=== PATIENT | female | born 1975 | race Caucasian/White ===

== ENCOUNTER 2024-11-03 20:41 | Inpatient (IN) ==
[2024-11-03] MEDS: SODIUM CHLORIDE 0.9% 500 ML IV STA (21:20)
[2024-11-03 21:26] LABS: Hematocrit (blood only) 29.5 % (37.0-47.0); Hemoglobin 7.9 g/dl (12.0-16.0); Immature Granulocytes # (auto) 0.05 K/uL (0.01-0.20); Immature Granulocytes % (auto) 0.4 %; Mean Corpuscular Hemoglobin 15.7 pg (25.0-34.0); Mean Corpuscular Volume 58.6 fL (80.0-100.0); RDW Standard Deviation 41.4 fL (36.4-46.3); Red Blood Count 5.03 M/uL (4.20-5.40); White Blood Count 11.93 K/ul (4.8-10.8)
[2024-11-03 21:35] LABS: POC Urine Bilirubin Negative (Negative); POC Urine Blood 50 (Negative); POC Urine Glucose Normal (Normal); POC Urine Ketones Negative (Negative); POC Urine Leukocytes 2+ (Negative); POC Urine Nitrite Negative (Negative); POC Urine Protein 1+ (Negative); POC Urine Urobilinogen Normal (Normal); POC Urine pH 5 (4.5-7.5)
[2024-11-03 21:43] LABS: Alanine Aminotransferase 9.0 U/L (7-52); Albumin Globulin Ratio 1.3 (0.9-2); Alkaline Phosphatase 72.0 U/L (34-104); Anion Gap 5.0 (3-11); Bilirubin,Total 0.4 mg/dl (0.2-1.0); Blood Urea Nitrogen 24.0 mg/dl (6-23); Calcium 9.1 mg/dl (8.6-10.3); Carbon Dioxide 25.0 mmol/L (21-32); Chloride 107.0 mmol/L (98-107); Creatinine Clr Calc Pharmacy 51.6 ml/min; Globulin 3.2 gm/dl (2.5-4.0); Glucose 100.0 mg/dl (70-99(Fasting)); Potassium 3.7 mmol/L (3.5-5.1); Sodium 137.0 mmol/L (136-145); Total Protein 7.5 gm/dl (6.0-8.3)
[2024-11-03 21:46] LABS: Appearance Urine Clear (Clear); Bacteria Urine Automated 1+ (None Seen); Cast Urine Automated 0-2 /lpf (0-2); Glucose Urine UA Negative (Negative); WBC Urine Automated 21-50 /hpf (0-5)
[2024-11-03 21:54] LABS: Platelet Count 437 K/uL (130-400)
--- NOTE | 2024-11-03 21:57 | Emergency Department Note ---
Impression & Plan Calculus of left ureter, Hydronephrosis, UTI (urinary tract infection) ED Provider Note CHIEF COMPLAINT: Obstructing stone HISTORY OF PRESENTING ILLNESS: The patient is a pleasant 48-year-old female who arrives to the emergency department for evaluation of left flank pain. The patient reports she has been having pain since last Saturday. She reports that she was evaluated today and had CT imaging performed of the abdomen and pelvis which diagnosed a 9.5x 5.83 mm calculus in the distal left ureter with left hydronephrosis.the patient states she was contacted by her provider and informed to come to the emergency department for fear that she is unable to pass the stone, as she has been symptomatic for over a week now. The patient denies fever, dysuria, or vomiting. She does report some episodes of nausea, and significant pain. She reports no previous history of kidney stones. She is well-appearing otherwise, with stable vital signs. REVIEW OF SYSTEMS: See HPI for pertinent positives and pertinent negatives. ALLERGIES: See below MEDICATIONS: See below PAST MEDICAL HISTORY: See below PHYSICAL EXAM: VITALS: Vitals are noted on the nurse's note and reviewed by myself. Vital signs stable. GENERAL: 48-year-old female, in no acute distress, nondiaphoretic, well- developed well-nourished. SKIN: The skin was without rashes, erythema, edema, or bruising. HEAD: Normocephalic atraumatic. HEART: Regular rate and rhythm without murmurs gallops or rubs. LUNGS: Clear to auscultation bilaterally without wheezes, rales or rhonchi. No retractions or accessory muscle use. ABDOMEN: Positive bowel sounds x 4. Soft, slight tenderness to palpation left lower quadrant, no rebound tenderness or guarding. No CVA TTP. MUSCULOSKELETAL: No muscle atrophy, erythema, or edema noted. Normal gait. Strength 5/5 throughout. NEURO: Patient was alert and oriented to person place and time. No focal neurological deficits. DIFFERENTIAL DIAGNOSIS: Appendicitis, ovarian cyst, ovarian torsion, ectopic , TOA, PID, infections, diverticulitis, UTI, obstruction, mesenteric ischemia, aortic pathology, inflammatory bowel disease, renal colic, PUD, pancreatitis, biliary pathology, hernia, volvulus, constipation, as well as other pathologies. ED COURSE AND MEDICAL DECISION MAKING: HISTORY FROM INDEPENDENT HISTORIAN: at bedside serving as secondary historian. MEDICATIONS GIVEN: 1 L NSS bolus, 4 mg IV Zofran, 15 mg IV Toradol, 2 g IV Rocephin INTERPRETATION OF LABS: I interpreted the labs with full lab results as below in the lab section of this note. Pertinent lab results discussed in the MDM section below. INTERPRETATION OF IMAGING: Imaging studies were interpreted by myself and read by radiology as per the imaging section of this note. EXTERNAL RECORDS REVIEWED: [facility] imaging was obtained, showing the distal ureteral stone on the left, with hydronephrosis. ESCALATION OF CARE CONSIDERED: Admission considered, as the patient has been attempting to pass the stone since last Saturday, without success. CONSULTATIONS: Dougie Moody PA-C from urology consulted, who recommended admitting to medicine and urology consult. MDM SUMMARY: The patient is a pleasant, 48-year-old female who arrives to the emergency department for evaluation of the above-stated complaint. Patient arrived during time of high acuity, and high-volume. Initial workup was obtained in triage including a saline lock, CBC, CMP, lipase, urinalysis. CBC shows slight leukocytosis, with chronic anemia. CMP shows no concerning findings, no GENI. Urinalysis is positive for 2+ leukocyte esterase, 21-50 WBCs, and 1+ bacteria. Consultation obtained by urology, who recommended admitting to medicine. IV antibiotics were administered, as well as IV fluids, and pain control. Patient will be admitted to the [facility] hospitalist group, Dr. Bender. Please refer to his documentation, as well as urology's documentation for further patient workup and care. DIAGNOSIS: Left ureteral calculus, hydronephrosis, UTI The chart was completed utilizing [employer] Speech voice recognition software. Grammatical errors, random word insertions, pronoun errors, and incomplete sentences are an occasional consequence of this system due to software limitations, ambient noise, and hardware issues. Any formal questions or concerns about the content, text, or information contained within the body of this dictation should be directly addressed to the provider for clarification. Past Med/Surg History Problem List (Updated 11/03/24 @ 22:57 by JESSICA Omalley) UTI (urinary tract infection) (Acute) Hydronephrosis (Acute) Calculus of left ureter (Acute) Nephrolithiasis Social History Smoking Status: Never smoker Preferred Language: Uzbek Feels Safe at Home: Yes Allergies Allergies Allergy/AdvReac Type Severity Reaction Status Date / Time No Known Allergies Allergy Unverified 11/03/24 22:46 Home Meds Home Medications Medication Instructions Recorded Confirmed No Known Home Medications 11/03/24 11/03/24 Results & Data (ED) Vital Signs Vital Signs - 24 hr 11/03/24 20:43 11/03/24 21:23 Temperature 37 C Temperature Source Temporal Artery Scan Pulse Rate 99 H Pulse Rate [Apical] 81 Pulse Rhythm Regular Pulse Strength Normal Respiratory Rate 18 18 Respiratory Effort / Characteristics Non-Labored Spontaneous Non-Labored Spontaneous Respiratory Depth Normal Normal Respiratory Pattern Regular Regular Blood Pressure 127/79 Blood Pressure [Left Arm] 130/70 Blood Pressure Mean 95 Blood Pressure Mean [Left Arm] 90 Blood Pressure Position Sitting Pulse Oximetry 100 99 Oxygen Delivery Method Room Air Room Air Sepsis Recent Fever Within 48 Hours No Sepsis New/Unexplained Change in Mental Status N/A Sepsis Action Taken by Nursing No Action Required Home Medications Current Medication List: was personally reviewed by me Laboratory Data Attestation: I reviewed the patient's lab results. 11/03/24 21:09 11/03/24 21:09 Lab Results 11/03/24 11/03/24 11/03/24 Range/Units 21:09 21: 21:30 WBC 11.93 H (4.8-10.8) K/ul RBC 5.03 (4.20-5.40) M/uL Hgb 7.9 L (12.0-16.0) g/dl Hct 29.5 L (37.0-47.0) % MCV 58.6 L (80.0-100.0) fL MCH 15.7 L (25.0-34.0) pg MCHC 26.8 L (32.0-36.0) g/dL RDW Std Deviation 41.4 (36.4-46.3) fL RDW Coeff of Windy 21.0 H (11.5-14.5) % Plt Count 437 H (130-400) K/uL MPV 9.3 L (9.4-12.4) fL Immature Gran % (Auto) 0.4 % Neut % (Auto) 67.4 % Lymph % (Auto) 22.8 % [place] % (Auto) 6.5 % Eos % (Auto) 2.6 % Baso % (Auto) 0.3 % Neut # (Auto) 8.04 H (1.40-6.50) K/uL Lymph # (Auto) 2.72 (1.20-3.40) K/uL [place] # (Auto) 0.78 H (0.11-0.59) K/uL Eos # (Auto) 0.31 (0.00-0.50) K/uL Baso # (Auto) 0.03 (0.00-0.20) K/uL Immature Gran # (Auto) 0.05 (0.01-0.20) K/uL Sodium 137 (136-145) mmol/L Potassium 3.7 (3.5-5.1) mmol/L Chloride 107 (98-107) mmol/L Carbon Dioxide 25 (21-32) mmol/L Anion Gap 5 (3-11) BUN 24 H (6-23) mg/dl Creatinine 1.15 (0.6-1.2) mg/dl Est Cr Clr Drug Dosing 51.6 ml/min eGFR 59.13 BUN/Creatinine Ratio 20.9 H (10-20) Glucose 100 H (70-99(Fasting)) mg/dl Calcium 9.1 (8.6-10.3) mg/dl Total Bilirubin 0.4 (0.2-1.0) mg/dl AST 12 L (13-39) U/L ALT 9 (7-52) U/L Alkaline Phosphatase 72 (34-104) U/L Total Protein 7.5 (6.0-8.3) gm/dl Albumin 4.3 (3.4-5.0) gm/dl Globulin 3.2 (2.5-4.0) gm/dl Albumin/Globulin Ratio 1.3 (0.9-2) Urine Color Yellow Urine Appearance Clear (Clear) Urine pH 5.0 (4.5-7.5) POC Urine pH 5 (4.5-7.5) Ur Specific [place] 1.026 (1.000-1.030) Urine Protein Trace H (Negative) POC Urine Protein 1+ H (Negative) Urine Glucose (UA) Negative (Negative) POC Ur Glucose (UA) Normal (Normal) Urine Ketones Trace H (Negative) POC Urine Ketones Negative (Negative) Urine Blood 1+ H (Negative) POC Urine Blood 50 H (Negative) Urine Nitrite Negative (Negative) POC Urine Nitrite Negative (Negative) Urine Bilirubin Negative (Negative) POC Urine Bilirubin Negative (Negative) Urine Urobilinogen Negative (Negative) POC Urine Urobilinogen Normal (Normal) Ur Leukocyte Esterase 2+ H (Negative) POC U Leukocyte Esteras 2+ H (Negative) Urine WBC (Auto) 21-50 H (0-5) /hpf Urine RBC (Auto) 6-10 H (0-2) /hpf U Hyaline Cast (Auto) 0-2 (0-2) /lpf U Epithel Cells (Auto) 6-10 H (0-2) /hpf Urine Bacteria (Auto) 1+ H (None Seen) POC Ur Test NEG (NEG) Urine Comment Administered Medications Sodium Chloride (Nss) 1,000 mls @ 999 mls/hr IV .Q1H1M ONE Stop: 11/03/24 22:59 Last Admin: 11/03/24 22:06 Dose: 999 mls/hr Documented By: KELLEN Discontinued Medications Sodium Chloride (Nss) 500 mls @ 999 mls/hr IV .Q31M STA Stop: 11/03/24 21:17 Last Infusion: 11/03/24 22:00 Dose: Infused Documented By: Admin: 11/03/24 21:20 Dose: 999 mls/hr Documented By: KELLEN Ceftriaxone Sodium (Rocephin) 2,000 mg in 50 mls @ 100 mls/hr IV NOW STA Stop: 11/03/24 22:29 Last Admin: 11/03/24 22:06 Dose: 100 mls/hr Documented By: KELLEN Ketorolac Tromethamine (Ketorolac Tromethamine 15 Mg/Ml Vial) 15 mg IV NOW ONE Stop: 11/03/24 22:00 Last Admin: 11/03/24 22:02 Dose: 15 mg Documented By: KELLEN Imaging Data Attestation: I personally reviewed and interpreted this imaging study as follows: Discharge Plan Visit Data Chief Complaint: Kidney Stone Stated Complaint: KIDNEY STONE ED Provider: Nestor Umana ED Midlevel Provider: Clarisa Ha Discharge Problem: Calculus of left ureter, Hydronephrosis, UTI (urinary tract infection) Patient Disposition: Admitted As Inpatient Condition: Good Forms Stand Alone Forms: My [facility] Prescriptions Prescriptions: No Action No Known Home Medications Referrals Referrals: Rojas Hernandez M.D. [Primary Care Provider] -
[2024-11-03] MEDS: KETOROLAC TROMETHAMINE 15 MG/ML VIAL IV ONE (22:02)
[2024-11-03] MEDS: cefTRIAXone SODIUM 2,000 MG/50 ML BAG IV STA (22:06)
[2024-11-03] MEDS: SODIUM CHLORIDE 0.9% 1,000 ML IV ONE (22:06)
--- NOTE | 2024-11-03 22:25 | Urology Consultation ---
Date of Consultation November 03, 2024 Assessment & Plan (1) Nephrolithiasis: The patient is being admitted on hospital service. From a urologic perspective we recommend the following: Provide analgesics Provide antiemetics Hydrate with IV fluids Follow serial labs Patient has an abnormal urinalysis and Rocephin has been initiated. Antibiotic should continue but can be tailored based on pending culture results Consideration can be given to utilizing Flomax for expulsive therapy, however it is unlikely the patient will pass the stone of the size. At the present time the patient is nontoxic-appearingthat she is normotensive no tachycardia or fever. She does not have acute kidney injury. Therefore not feeling emergent urologic procedure is required at this time Would recommend making the patient n.p.o. after midnight and [facility] and the determination was made if patient will undergo cystoscopic intervention Additional recommendations be forthcoming based on her clinical course as unfolds History of Present Illness Reason for Consultation: Nephrolithiasis History of Present Illness This is a 48-year-old female who presented to the emergency department [facility] secondary to left-sided flank pain. Patient says that she has been struggling with this problem for approximately 9 days. She says when the pain initially began it was in her left flank with some radiation to the front of her abdomen. She did have some associated nausea and vomiting but this has abated. She does not report any other radiation or modifying factors to her pain. She did report 1 low-grade temperature earlier today which is approximate 99.5. She denies any dysuria or hematuria and has no prior history of kidney stones. Patient says that she originally went to a facility in [place], [place] where she was discharged but then she went to an urgent care facility through [facility] where she obtained a CAT scan which will be listed below. The patient did have a CT scan at [facility] facility in [place], [place]. I do not have the images available but the patient was able to show me the report on her portal and she was noted to have a left-sided kidney stone measuring approximately 9.5 mm. Because of the CT scan results the patient went to the emergency department [facility] where urology was asked to evaluate her. Since arrival to the emergency department at [facility] she has had labs including CBC were white blood cell count had a slight elevation 11 .9. Her hemoglobin and hematocrit were 7.9 and 29.5. Platelet count is 4 and 37,000. Chemistry profile showed sodium and potassium were normal. The patient's BUN had a slight elevation at 24 but her creatinine was normal at 1.15. Urinalysis did show 1+ blood. The specimen was negative for nitrites but had 2+ leukocyte Estrace and 21-50 white blood cells per high-power field and 1+ bacteria. She did have a test that was negative. At the time of my interview she was resting comfortably bed and she was in no distress. Allergies Allergy/AdvReac Type Severity Reaction Status Date / Time No Known Allergies Allergy Unverified 12/23/10 12:44 Home Medications Medication Instructions Recorded Confirmed Type None (Patient States No Home Meds) ##0 12/23/10 History Patient History Social History Smoking Status: Never smoker Preferred Language: Maori Feels Safe at Home: Yes Review of Systems Review of Systems: All systems reviewed & are unremarkable except as noted in HPI & below Physical Exam Constitutional: WD/WN, vitals as above Eyes: Wears glasses ENMT: Ears: no hearing impairment Mouth: no oropharynx abnormality Neck: trachea midline Respiratory: normal respiratory effort; no respiratory distress and no labored breathing Cardiovascular: Rate/Rhythm: regular rate and regular rhythm Gastrointestinal (Abdomen): At at the time of my exam the patient's abdomen was noted to be soft without distention or rigidity. There is no pain with palpation Musculoskeletal: No calf tenderness Skin: no rashes Neurologic: moves all extremities Psychiatric: A+Ox3, euthymic affect Genitourinary: Minimal CVA tenderness with percussion on the left. No CVA tenderness with percussion on the right Results & Data Vital Signs (Past 12 Hours) Vital Signs Temp Pulse Pulse Resp BP BP Pulse Ox 11/03/24 21:23 81 18 130/70 99 11/03/24 20:43 37 C 99 H 18 127/79 100 O2 Del Method 11/03/24 21:23 Room Air 11/03/24 20:43 Room Air PG Care Time/CCT Total # of Minutes Spent Total Time Spent with Patient: Total time spent is greater than 50% in coordination of care (as documented) at patient's floor/unit and/or counseling patient: Coding Level of Care Code 36796 IN/OBS CONSULT LVL 5,80M Diagnoses Nephrolithiasis N20.0
[2024-11-03 22:57] LABS: Anisocytosis Present; Hypersegmented Neutrophils 2+; Microcytosis Present; Polychromasia 1+; Tear Drop Cells 1+
--- NOTE | 2024-11-03 23:56 | History & Physical Report ---
Date of Service November 03, 2024 Assessment & Plan (1) UTI (urinary tract infection): Plan: Assessment and plan below following discussion of case with ED provider and reviewing patient history/pertinent normal/abnormal diagnostic test results. Complicated UTI, possible pyelonephritis Secondary to obstructing kidney stone No sepsis for now Acute on chronic anemia Patient admits to heavy menses for some time now. microscopic hematuria from kidney stone contributory Admit to MedSurg Urine CS, ceftriaxone Urology consult re: obstructing kidney stone Strain urine N.p.o. in anticipation of procedure in a.m. Anemia workup, transfuse PRBC if hemoglobin less than 7 and or for symptomatic anemia Outpatient gynecology evaluation for heavy menses DVT prophylaxis. SCDs Re: Anemia Full code Text document was generated using [employer] voice recognition software. It may contain grammatical or spelling errors. Kindly contact undersigned for clarification of any documentation item in question. History of Present Illness Chief Complaint: Kidney stone Primary Care Provider: Rojas Hernandez History obtained from patient, family, and records. Medical history significant for chronic anemia (baseline hemoglobin of 8), recent diagnosis of kidney stone. 9 days ago, patient noted left flank pain symptoms going to her belly with nausea/emesis. No gross hematuria. No dysuria. No prior episodes. Patient suspected kidney stone. Patient evaluated at [facility] ER last week. UA showed possible UTI, no imaging done. No medications given on discharge. Patient called PCP's office due to worsening symptoms. Patient directed to urgent care center today. Urgent care center recommended outpatient CT abdomen pelvis imaging. Outpatient CT abdomen pelvis done at [facility] showed left-sided kidney stone measuring 9.5 mm. Patient directed to ER for evaluation. IV ceftriaxone administered at the ER. Medical History as above Surgical History : None Family History : Unknown as patient was adopted Personal/Social history : Non-smoker, no EtOH intake, moy by profession/homemaker Allergies Allergy/AdvReac Type Severity Reaction Status Date / Time No Known Allergies Allergy Unverified 11/03/24 22:46 Home Medications Medication Instructions Recorded Confirmed Type No Known Home Medications 11/03/24 11/03/24 History Past Med/Surg History Problem List (Updated 11/04/24 @ 01:53 by Background Daemon) UTI (urinary tract infection) (Acute) Hydronephrosis (Acute) Calculus of left ureter (Acute) Nephrolithiasis Social History Smoking Status: Never smoker Hx Alcohol Use: No Hx Substance Use: No Preferred Language: Kiswahili Communication Ability: Effective Coat Joiner Lockstitch Required: No Beliefs That Will Affect Care: None Current Living Situation: Spouse Other Information That Helps Us Care for You: No Feels Safe at Home: Yes Safety Concerns: Feels Safe At This Time Assistive Devices: None Review of Systems Review of Systems: As per HPI, all other systems reviewed and negative Physical Exam Physical Exam: GENERAL: Comfortable, pleasant, no respiratory distress SKIN: Pallor, warm HEENT: Bespectacled, pale palpebral conjunctivae, no ptosis, dry buccal mucosa NECK : Supple, no tenderness CHEST : CTA, no tenderness HEART : RRR, no obvious murmurs ABDOMEN: Some distention, left flank tenderness EXTREMITIES : No LE swelling/tenderness, palpable pulses, no other conspicuous deformities noted NEUROLOGIC : Coherent, no facial asymmetry, no other gross focality Results & Data Results & Data Vital Signs (Past 12 Hours) Vital Signs Temp Pulse Pulse Resp BP BP Pulse Ox 11/03/24 23:33 85 123/81 99 11/03/24 21:23 81 18 130/70 99 11/03/24 20:43 37 C 99 H 18 127/79 100 O2 Del Method 11/03/24 23:33 Room Air 11/03/24 21:23 Room Air 11/03/24 20:43 Room Air Laboratory Results Laboratory Results WBC 11.93 K/ul (4.8-10.8) H 11/03/24 21:09 RBC 5.03 M/uL (4.20-5.40) 11/03/24 21:09 Hgb 7.9 g/dl (12.0-16.0) L 11/03/24 21:09 Hct 29.5 % (37.0-47.0) L 11/03/24 21:09 MCV 58.6 fL (80.0-100.0) L 11/03/24 21:09 MCH 15.7 pg (25.0-34.0) L 11/03/24 21:09 MCHC 26.8 g/dL (32.0-36.0) L 11/03/24 21:09 RDW Std Deviation 41.4 fL (36.4-46.3) 11/03/24 21:09 RDW Coeff of Windy 21.0 % (11.5-14.5) H 11/03/24 21:09 Plt Count 437 K/uL (130-400) H 11/03/24 21:09 MPV 9.3 fL (9.4-12.4) L 11/03/24 21:09 Immature Gran % (Auto) 0.4 % 11/03/24 21:09 Neut % (Auto) 67.4 % 11/03/24 21:09 Lymph % (Auto) 22.8 % 11/03/24 21:09 [place] % (Auto) 6.5 % 11/03/24 21:09 Eos % (Auto) 2.6 % 11/03/24 21:09 Baso % (Auto) 0.3 % 11/03/24 21:09 Neut # (Auto) 8.04 K/uL (1.40-6.50) H 11/03/24 21:09 Lymph # (Auto) 2.72 K/uL (1.20-3.40) 11/03/24 21:09 [place] # (Auto) 0.78 K/uL (0.11-0.59) H 11/03/24 21:09 Eos # (Auto) 0.31 K/uL (0.00-0.50) 11/03/24 21:09 Baso # (Auto) 0.03 K/uL (0.00-0.20) 11/03/24 21:09 Immature Gran # (Auto) 0.05 K/uL (0.01-0.20) 11/03/24 21:09 Hypersegmented Neuts 2+ 11/03/24 21:09 Polychromasia 1+ 11/03/24 21:09 Anisocytosis Present 11/03/24 21:09 Microcytosis Present 11/03/24 21:09 Tear Drop Cells 1+ 11/03/24 21:09 Sodium 137 mmol/L (136-145) 11/03/24 21:09 Potassium 3.7 mmol/L (3.5-5.1) 11/03/24 21:09 Chloride 107 mmol/L (98-107) 11/03/24 21:09 Carbon Dioxide 25 mmol/L (21-32) 11/03/24 21:09 Anion Gap 5 (3-11) 11/03/24 21: BUN 24 mg/dl (6-23) H 11/03/24 21: Creatinine 1.15 mg/dl (0.6-1.2) 11/03/24 21: Est Cr Clr Drug Dosing 51.6 ml/min 11/03/24 21: eGFR 59.13 11/03/24 21: BUN/Creatinine Ratio 20.9 (10-20) H 11/03/24 21: Glucose 100 mg/dl (70-99(Fasting)) H 11/03/24 21: Calcium 9.1 mg/dl (8.6-10.3) 11/03/24 21: Total Bilirubin 0.4 mg/dl (0.2-1.0) 11/03/24 21: AST 12 U/L (13-39) L 11/03/24 21: ALT 9 U/L (7-52) 11/03/24 21:09 Alkaline Phosphatase 72 U/L (34-104) 11/03/24 21: Total Protein 7.5 gm/dl (6.0-8.3) 11/03/24 21: Albumin 4.3 gm/dl (3.4-5.0) 11/03/24 21: Globulin 3.2 gm/dl (2.5-4.0) 11/03/24 21: Albumin/Globulin Ratio 1.3 (0.9-2) 11/03/24 21: Urine Color Yellow 11/03/24: Urine Appearance Clear (Clear) 11/03/24: Urine pH 5.0 (4.5-7.5) 11/03/24: POC Urine pH 5 (4.5-7.5) 11/03/24: Ur Specific [place] 1.026 (1.000-1.030) 11/03/24: Urine Protein Trace (Negative) H 11/03/24: POC Urine Protein 1+ (Negative) H 11/03/24: Urine Glucose (UA) Negative (Negative) 11/03/24 POC Ur Glucose (UA) Normal (Normal) 07/15/25 21:30 Urine Ketones Trace (Negative) H 11/03/24 21:25 POC Urine Ketones Negative (Negative) 11/03/24 21: Urine Blood 1+ (Negative) H 11/03/24 21: POC Urine Blood 50 (Negative) H 11/03/24 21: Urine Nitrite Negative (Negative) 11/03/24 21: POC Urine Nitrite Negative (Negative) 11/03/24: Urine Bilirubin Negative (Negative) 11/03/24 21: POC Urine Bilirubin Negative (Negative) 11/03/24 21: Urine Urobilinogen Negative (Negative) 11/03/24 21: POC Urine Urobilinogen Normal (Normal) 11/03/24 21: Ur Leukocyte Esterase 2+ (Negative) H 11/03/24: POC U Leukocyte Esteras 2+ (Negative) H 11/03/24 21: Urine WBC (Auto) 21-50 /hpf (0-5) H 11/03/24 21: Urine RBC (Auto) 6-10 /hpf (0-2) H 11/03/24 21: U Hyaline Cast (Auto) 0-2 /lpf (0-2) 11/03/24 21: U Epithel Cells (Auto) 6-10 /hpf (0-2) H 11/03/24 21: Urine Bacteria (Auto) 1+ (None Seen) H 11/03/24 21: POC Ur Test NEG (NEG) 11/03/24: Urine Comment 11/03/24 21:25
[2024-11-04] MEDS ORDERED: PROMETHAZINE 6.25 MG/50.25 ML BAG IV PRN (00:09)
[2024-11-04] MEDS: MoRPHine SULFATE 4 MG/ML 1 ML CARP\\VIAL IV PRN (03:22)
[2024-11-04] MEDS: SODIUM CHLORIDE 0.9% 1,000 ML IV ONE (06:17)
[2024-11-04 07:22] LABS: Anion Gap 5.0 (3-11); Blood Urea Nitrogen 18.0 mg/dl (6-23); Calcium 7.8 mg/dl (8.6-10.3); Carbon Dioxide 23.0 mmol/L (21-32); Chloride 110.0 mmol/L (98-107); Creatinine Clr Calc Pharmacy 66.0 ml/min; Glucose 99.0 mg/dl (70-99(Fasting)); Iron 11.0 mcg/dl (35-150); Potassium 3.6 mmol/L (3.5-5.1); Sodium 138.0 mmol/L (136-145); Transferrin 352.0 mg/dl (200-360)
[2024-11-04 07:29] LABS: Hematocrit (blood only) 26.0 % (37.0-47.0); Hemoglobin 6.9 g/dl (12.0-16.0); Mean Corpuscular Hemoglobin 15.6 pg (25.0-34.0); Mean Corpuscular Volume 59.0 fL (80.0-100.0); Platelet Count 356 K/uL (130-400); RDW Standard Deviation 41.6 fL (36.4-46.3); Red Blood Count 4.41 M/uL (4.20-5.40); White Blood Count 9.72 K/ul (4.8-10.8)
[2024-11-04] MEDS ORDERED: SODIUM CHLORIDE 0.9% 100 ML IV PRN (07:38)
[2024-11-04 07:42] LABS: Anisocytosis Present; Ferritin 5.5 ng/ml (8-388); Hypochromasia Present; Immature Granulocytes # (auto) 0.03 K/uL (0.01-0.20); Immature Granulocytes % (auto) 0.3 %; Ovalocytes 1+; Polychromasia 1+; Reticulocytes # 0.060 10^6/uL (0.020-0.100); Rouleaux 1+; Target Cells 1+
[2024-11-04 07:48] LABS: Folate (Folic Acid),Ser orPlas 13.43 ng/ml (>5.38)
[2024-11-04 07:49] LABS: Vitamin B12 306.0 pg/ml (180-914)
--- NOTE | 2024-11-04 09:16 | Urology Progress Note ---
Date of Service November 04, 2024 Assessment & Plan (1) Calculus of left ureter: Plan: Ct scan from [facility] was imported and reviewed with Dr Bedolla. She has a left ureteral stone with some mild hydronephrosis. afebrile. VSS. hgb 6.9 today. Cr 0.90 Discussed options with her including cysto/URS and left stent placement vs observation. She prefers to have this managed surgically as it is unlikely she will pass this stone. NPO. Plan for cysto/URS and left ureteral stent placement with Dr Bedolla today. She understands that she will need a second procedure for stone treatment. Continue antibiotics/pain control. (2) Hydronephrosis: (3) UTI (urinary tract infection): Admission and Anticipated Discharge Date Admission Date: November 03, 2024 Supervising Physician Co-Signing Physician Notes Discussed patient with PAOLA. Agree with plan. Plan for cystoscopy with left stent due to pain and potential infection. C onsent obtained, patient marked. Subjective 48 year old patient admitted with left 9.5mm kidney stone per the report, in the left ureter. Still continues to have left lower abdominal and left back pain. She is npo. CT scan was imported into our [employer] system. Physical Exam Constitutional: well developed and well nourished; no acute distress and not ill appearing Respiratory: normal respiratory effort; no respiratory distress and no labored breathing Gastrointestinal (Abdomen): Percussion/Palpation: + abdomen tender and abdomen soft Psychiatric: A+Ox3, euthymic affect Genitourinary: + CVA tenderness Results & Data Vital Signs (Past 12 Hours) Vital Signs Temp Pulse Pulse Resp BP BP Pulse Ox 11/04/24 07:32 36.8 C 73 18 102/63 98 11/04/24 02:33 36.8 C 85 18 133/78 100 11/04/24 01:59 36.8 C 85 18 133/78 85 L 11/04/24 01:30 85 16 128/78 99 11/04/24 00:30 89 123/73 98 11/04/24 00:00 86 130/80 100 11/03/24 23:33 85 123/81 99 11/03/24 21:23 81 18 130/70 99 O2 Del Method 11/04/24 07:32 Room Air 11/04/24 02:33 Room Air 11/04/24 01:59 Room Air 07/16/25 01:30 Room Air 11/04/24 00:30 Room Air 11/04/24 00:00 Room Air 11/03/24 23:33 Room Air 11/03/24 21:23 Room Air PG Care Time/CCT Total # of Minutes Spent Total Time Spent with Patient: Total time spent is greater than 50% in coordination of care (as documented) at patient's floor/unit and/or counseling patient: Coding Level of Care Code 22331 SUB INP/OBS CARE 2/35MIN Diagnoses Calculus of left ureter N20.1 Hydronephrosis N13.30 UTI (urinary tract infection) N39.0
--- NOTE | 2024-11-04 09:26 | Hospitalist Progress Note ---
Date of Service November 04, 2024 Assessment & Plan (1) UTI (urinary tract infection): Plan: Complicated UTI, possible pyelonephritis Secondary to obstructing kidney stone No sepsis for now Urine CS, ceftriaxone Urology consulted re: obstructing kidney stone Strain urine N.p.o. in anticipation of procedure later today Acute on chronic anemia Patient admits to heavy menses for some time now. microscopic hematuria from kidney stone contributory Anemia workup, transfuse PRBC if hemoglobin less than 7 and or for symptomatic anemia 1 unit of pRBC ordered for Hgb 6.9 this AM Outpatient gynecology evaluation for heavy menses PCP follow up DVT prophylaxis. SCDs Re: Anemia Full code Admission and Anticipated Discharge Date Admission Date: November 03, 2024 Subjective Pt seen in follow up of obstructive uropathy, urology consulted Pt also anemic (seems to have chronic anemia) but now w/ worsening H&H, unit of pRBC ordered Currently pt is lying in bed, continues to have left sided flank pain, uncomfortable, plan for OR w/ urology later today No fever, chills, chest pain or shortness of breath, no vomiting, diarrhea Says she will need new PCP Review of Systems Review of Systems: All systems reviewed & are unremarkable except as noted in Subjective Physical Exam Physical Exam: GENERAL: WD/WN F in NAD but somewhat uncomfortable d/t pain HEENT: Bespectacled, pale palpebral conjunctivae, no ptosis NECK : Supple, no tenderness CHEST : CTA, no tenderness HEART : RRR, no obvious murmurs ABDOMEN: Some distention, + left flank tenderness EXTREMITIES : No LE swelling/tenderness, palpable pulses, no other conspicuous deformities noted NEUROLOGIC : awake, alert, answers appropriately, no facial asymmetry, speech fluent, moves extremities SKIN: warm, dry Results & Data Results & Data Vital Signs (Past 12 Hours) Vital Signs Temp Pulse Pulse Resp BP BP Pulse Ox 11/04/24 07:32 36.8 C 73 18 102/63 98 11/04/24 02:33 36.8 C 85 18 133/78 100 11/04/24 01:59 36.8 C 85 18 133/78 85 L 11/04/24 01:30 85 16 128/78 99 11/04/24 00:30 89 123/73 98 11/04/24 00:00 86 130/80 100 11/03/24 23:33 85 123/81 99 O2 Del Method 11/04/24 07:32 Room Air 11/04/24 02:33 Room Air 11/04/24 01:59 Room Air 11/04/24 01:30 Room Air 11/04/24 00:30 Room Air 11/04/24 00:00 Room Air 11/03/24 23:33 Room Air Laboratory Results 11/04/24 11/04/24 11/03/24 Range/Units 08:01 06:22 21:30 WBC 9.72 (4.8-10.8) K/ul RBC 4.41 (4.20-5.40) M/uL Hgb 6.9 L* (12.0-16.0) g/dl Hct 26.0 L (37.0-47.0) % MCV 59.0 L (80.0-100.0) fL MCH 15.6 L (25.0-34.0) pg MCHC 26.5 L (32.0-36.0) g/dL RDW Std Deviation 41.6 (36.4-46.3) fL RDW Coeff of Windy 20.4 H (11.5-14.5) % Plt Count 356 (130-400) K/uL MPV 9.2 L (9.4-12.4) fL Immature Gran % (Auto) 0.3 % Neut % (Auto) 62.1 % Lymph % (Auto) 24.7 % [place] % (Auto) 8.6 % Eos % (Auto) 4.0 % Baso % (Auto) 0.3 % Reticulocyte % (Auto) 1.39 (0.50-2.00) % Neut # (Auto) 6.03 (1.40-6.50) K/uL Lymph # (Auto) 2.40 (1.20-3.40) K/uL [place] # (Auto) 0.84 H (0.11-0.59) K/uL Eos # (Auto) 0.39 (0.00-0.50) K/uL Baso # (Auto) 0.03 (0.00-0.20) K/uL Reticulocyte # 0.060 (0.020-0.100) 10^6/uL Immature Gran # (Auto) 0.03 (0.01-0.20) K/uL Hypersegmented Neuts Polychromasia 1+ Hypochromasia Present Anisocytosis Present Microcytosis Target Cells 1+ Tear Drop Cells Ovalocytes 1+ Rouleaux 1+ Sodium 138 (136-145) mmol/L Potassium 3.6 (3.5-5.1) mmol/L Chloride 110 H (98-107) mmol/L Carbon Dioxide 23 (21-32) mmol/L Anion Gap 5 (3-11) BUN 18 (6-23) mg/dl Creatinine 0.90 (0.6-1.2) mg/dl Est Cr Clr Drug Dosing 66.0 ml/min eGFR 79.35 BUN/Creatinine Ratio 20.0 (10-20) Glucose 99 (70-99(Fasting)) mg/dl Calcium 7.8 L (8.6-10.3) mg/dl Iron 11 L (35-150) mcg/dl Transferrin 352 (200-360) mg/dl Ferritin 5.5 L (8-388) ng/ml Total Bilirubin (0.2-1.0) mg/dl AST (13-39) U/L ALT (7-52) U/L Alkaline Phosphatase (34-104) U/L Total Protein (6.0-8.3) gm/dl Albumin (3.4-5.0) gm/dl Globulin (2.5-4.0) gm/dl Albumin/Globulin Ratio (0.9-2) Vitamin B12 306 (180-914) pg/ml Folate 13.43 (>5.38) ng/ml Urine Color Urine Appearance (Clear) Urine pH (4.5-7.5) POC Urine pH 5 (4.5-7.5) Ur Specific [place] (1.000-1.030) Urine Protein (Negative) POC Urine Protein 1+ H (Negative) Urine Glucose (UA) (Negative) POC Ur Glucose (UA) Normal (Normal) Urine Ketones (Negative) POC Urine Ketones Negative (Negative) Urine Blood (Negative) POC Urine Blood 50 H (Negative) Urine Nitrite (Negative) POC Urine Nitrite Negative (Negative) Urine Bilirubin (Negative) POC Urine Bilirubin Negative (Negative) Urine Urobilinogen (Negative) POC Urine Urobilinogen Normal (Normal) Ur Leukocyte Esterase (Negative) POC U Leukocyte Esteras 2+ H (Negative) Urine WBC (Auto) (0-5) /hpf Urine RBC (Auto) (0-2) /hpf U Hyaline Cast (Auto) (0-2) /lpf U Epithel Cells (Auto) (0-2) /hpf Urine Bacteria (Auto) (None Seen) POC Ur Test NEG (NEG) Urine Comment Blood Type O Positive Blood Type Recheck O Positive Antibody Screen NEGATIVE Crossmatch See Detail 11/03/24 11/03/24 Range/Units 21:25 21:09 WBC 11.93 H (4.8-10.8) K/ul RBC 5.03 (4.20-5.40) M/uL Hgb 7.9 L (12.0-16.0) g/dl Hct 29.5 L (37.0-47.0) % MCV 58.6 L (80.0-100.0) fL MCH 15.7 L (25.0-34.0) pg MCHC 26.8 L (32.0-36.0) g/dL RDW Std Deviation 41.4 (36.4-46.3) fL RDW Coeff of Windy 21.0 H (11.5-14.5) % Plt Count 437 H (130-400) K/uL MPV 9.3 L (9.4-12.4) fL Immature Gran % (Auto) 0.4 % Neut % (Auto) 67.4 % Lymph % (Auto) 22.8 % [place] % (Auto) 6.5 % Eos % (Auto) 2.6 % Baso % (Auto) 0.3 % Reticulocyte % (Auto) (0.50-2.00) % Neut # (Auto) 8.04 H (1.40-6.50) K/uL Lymph # (Auto) 2.72 (1.20-3.40) K/uL [place] # (Auto) 0.78 H (0.11-0.59) K/uL Eos # (Auto) 0.31 (0.00-0.50) K/uL Baso # (Auto) 0.03 (0.00-0.20) K/uL Reticulocyte # (0.020-0.100) 10^6/uL Immature Gran # (Auto) 0.05 (0.01-0.20) K/uL Hypersegmented Neuts 2+ Polychromasia 1+ Hypochromasia Anisocytosis Present Microcytosis Present Target Cells Tear Drop Cells 1+ Ovalocytes Rouleaux Sodium 137 (136-145) mmol/L Potassium 3.7 (3.5-5.1) mmol/L Chloride 107 (98-107) mmol/L Carbon Dioxide 25 (21-32) mmol/L Anion Gap 5 (3-11) BUN 24 H (6-23) mg/dl Creatinine 1.15 (0.6-1.2) mg/dl Est Cr Clr Drug Dosing 51.6 ml/min eGFR 59.13 BUN/Creatinine Ratio 20.9 H (10-20) Glucose 100 H (70-99(Fasting)) mg/dl Calcium 9.1 (8.6-10.3) mg/dl Iron (35-150) mcg/dl Transferrin (200-360) mg/dl Ferritin (8-388) ng/ml Total Bilirubin 0.4 (0.2-1.0) mg/dl AST 12 L (13-39) U/L ALT 9 (7-52) U/L Alkaline Phosphatase 72 (34-104) U/L Total Protein 7.5 (6.0-8.3) gm/dl Albumin 4.3 (3.4-5.0) gm/dl Globulin 3.2 (2.5-4.0) gm/dl Albumin/Globulin Ratio 1.3 (0.9-2) Vitamin B12 (180-914) pg/ml Folate (>5.38) ng/ml Urine Color Yellow Urine Appearance Clear (Clear) Urine pH 5.0 (4.5-7.5) POC Urine pH (4.5-7.5) Ur Specific [place] 1.026 (1.000-1.030) Urine Protein Trace H (Negative) POC Urine Protein (Negative) Urine Glucose (UA) Negative (Negative) POC Ur Glucose (UA) (Normal) Urine Ketones Trace H (Negative) POC Urine Ketones (Negative) Urine Blood 1+ H (Negative) POC Urine Blood (Negative) Urine Nitrite Negative (Negative) POC Urine Nitrite (Negative) Urine Bilirubin Negative (Negative) POC Urine Bilirubin (Negative) Urine Urobilinogen Negative (Negative) POC Urine Urobilinogen (Normal) Ur Leukocyte Esterase 2+ H (Negative) POC U Leukocyte Esteras (Negative) Urine WBC (Auto) 21-50 H (0-5) /hpf Urine RBC (Auto) 6-10 H (0-2) /hpf U Hyaline Cast (Auto) 0-2 (0-2) /lpf U Epithel Cells (Auto) 6-10 H (0-2) /hpf Urine Bacteria (Auto) 1+ H (None Seen) POC Ur Test (NEG) Urine Comment Blood Type Blood Type Recheck Antibody Screen Crossmatch Medications Administered Current Inpatient Medications Ceftriaxone Sodium (Rocephin) 2,000 mg in 50 mls @ 100 mls/hr IV Q24H RAFAEL Stop: 11/11/24 22:29 Promethazine HCl (Phenergan) 6.25 mg in 50.25 mls @ 201 mls/hr IV Q6H PRN PRN Reason: Nausea And Vomiting Stop: 12/04/24 00:08 Sodium Chloride (Nss) 1,000 mls @ 100 mls/hr IV .Q10H ONE Stop: 11/04/24 14:11 Last Admin: 11/04/24 06:17 Dose: 100 mls/hr Sodium Chloride (Nss) 100 mls @ 15 mls/hr IV .Q6H40M PRN PRN Reason: For Transfusion Duration Stop: 11/04/24 15:38 Lorazepam (Lorazepam 0.5 Mg Tab) 0.5 mg PO TID PRN PRN Reason: Anxiety Stop: 12/04/24 00:08 Morphine Sulfate (Morphine Sulfate 4 Mg/Ml 1 Ml Carp\Vial) 4 mg IV Q4H PRN PRN Reason: Pain Stop: 11/18/24 00:08 Last Admin: 11/04/24 03:22 Dose: 4 mg Oxycodone HCl (Oxycodone Hcl Ir 5 Mg Tab (Immediate Release)) 5 mg PO Q4H PRN PRN Reason: Pain Stop: 11/18/24 00:08 Last Admin: 11/04/24 09:00 Dose: 5 mg
[2024-11-04] MEDS: KETOROLAC TROMETHAMINE 15 MG/ML VIAL IV ONE (11:20)
[2024-11-04] MEDS ORDERED: PROMETHAZINE HCL 6.25 MG in SODIUM CHLORIDE 0.9% 50 ML IV PRN (13:17)
[2024-11-04] MEDS ORDERED: ATROPINE SULFATE 0.1 MG/ML 10ML SYR IV PRN (13:17)
[2024-11-04] MEDS ORDERED: HYDROmorphone INJ 2 MG/ML SYR/VIAL IV PRN (13:17)
[2024-11-04] MEDS ORDERED: DROPERIDOL 5 MG/2 ML VIAL IV PRN (13:17)
--- NOTE | 2024-11-04 13:17 | Anesthesiology Consultation ---
Date of Service November 04, 2024 Assessment & Plan ASA ASA2 Proposed Anesthesia Anesthesia Type: MAC Risk / Benefits Reviewed With: PT / POA / Parent / Guardian, Accepts Plan and Informed Consent Obtained History Surgery Operation Date: 11/04/24 07:00 Proposed Procedures p Cystoscopy Left Ureteroscopy and Stent Placement - Sukhi Bedolla MD Height/Weight Height: 5 ft Weight: 67 kg Allergies Allergy/AdvReac Type Severity Reaction Status Date / Time No Known Allergies Allergy Unverified 11/04/24 12:05 Medications Home Medications Medication Instructions Recorded Confirmed Last Taken No Known Home Medications 11/03/24 11/03/24 Unknown Active Medications Generic Name Dose Route Start Last Admin Trade Name Freq PRN Reason Stop Dose Admin Sodium Chloride 1,000 mls @ 100 mls/hr 11/04/24 04:12 11/04/24 06:17 Nss IV 11/04/24 14:11 100 mls/hr .Q10H ONE Administration Morphine Sulfate 4 mg 11/04/24 00:09 11/04/24 09:41 Morphine Sulfate 4 Mg/Ml 1 Ml Carp\Vial IV 11/18/24 00:08 4 mg Q4H PRN Administration Pain Oxycodone HCl 5 mg 11/04/24 00:09 11/04/24 09:00 Oxycodone Hcl Ir 5 Mg Tab (Immediate Release) PO 11/18/24 00:08 5 mg Q4H PRN Administration Pain NPO Date Last Intake of Fluids: 11/03/24 Time Last Intake of Fluids: 23:30 Date Last Intake of Solids: 11/03/24 Time Last Intake of Solids: 17:00 Exercise / Class Metabolic Activity II 4-5 Yardwork/Stairs/Walk up hill Past Anesthesia History No Hx of Anesthesia Complications and No Family Hx of Anesthesia Complications History of PONV No Hx of PONV and No Hx of Motion Sickness Social History Smoking Status: Never smoker Hx Alcohol Use: No Hx Substance Use: No Physical Exam Vital Signs Last Vital Signs Temp 37.0 C 11/04/24 12:05 Pulse 69 11/04/24 12:05 Resp 18 11/04/24 12:05 BP 133/76 11/04/24 12:05 Pulse Ox 100 11/04/24 12:05 O2 Del Method Room Air 11/04/24 12:05 Constitutional no acute distress ENMT Mouth: no dentition abnormality Thyromental Distance: > or= 3.5 Finger Breadths Mallampati Class: II Neck normal visual inspection Respiratory normal respiratory effort; no respiratory distress Auscultation: lungs clear to auscultation bilaterally Cardiovascular Rate/Rhythm: regular rate and regular rhythm Heart Sounds: no murmur Musculoskeletal Spine: normal cervical ROM Psychiatric Orientation: alert and oriented x 3 Testing Laboratory Results 11/04/24 06:22 11/04/24 06:22 Urine Color Yellow 11/03/24 21: Urine Appearance Clear (Clear) 11/03/24 21: Urine pH 5.0 (4.5-7.5) 11/03/24 21: Ur Specific [place] 1.026 (1.000-1.030) 11/03/24 21: Urine Protein Trace (Negative) H 11/03/24 21: Urine Glucose (UA) Negative (Negative) 11/03/24: Urine Ketones Trace (Negative) H 11/03/24 21: Urine Nitrite Negative (Negative) 11/03/24 21:25 Ur Leukocyte Esterase 2+ (Negative) H 11/03/24 21:25 Urine WBC (Auto) 21-50 /hpf (0-5) H 11/03/24 21: Urine RBC (Auto) 6-10 /hpf (0-2) H 11/03/24 21: U Hyaline Cast (Auto) 0-2 /lpf (0-2) 11/03/24 21:25 U Epithel Cells (Auto) 6-10 /hpf (0-2) H 11/03/24 21:25 Urine Bacteria (Auto) 1+ (None Seen) H 11/03/24 21:25 Blood Type O Positive 11/04/24 06:22 Antibody Screen NEGATIVE 11/04/24 06:22 11/03/24 21:30 POC Ur Test NEG Day of Procedure Evaluation. Date of Surgery November 04, 2024 Height/Weight Height: 5 ft Weight: 67 kg Vital Signs Last Vital Signs Temp 37.0 C 11/04/24 12:05 Pulse 69 11/04/24 12:05 Resp 18 11/04/24 12:05 BP 133/76 11/04/24 12:05 Pulse Ox 100 11/04/24 12:05 O2 Del Method Room Air 11/04/24 12:05 Allergies Allergy/AdvReac Type Severity Reaction Status Date / Time No Known Allergies Allergy Unverified 11/04/24 12:05 Medications Home Medications Medication Instructions Recorded Confirmed Last Taken No Known Home Medications 11/03/24 11/03/24 Unknown Active Medications Generic Name Dose Route Start Last Admin Trade Name Hossein PRN Reason Stop Dose Admin Sodium Chloride 1,000 mls @ 100 mls/hr 11/04/24 04:12 11/04/24 06:17 Nss IV 11/04/24 14:11 100 mls/hr .Q10H ONE Administration Morphine Sulfate 4 mg 11/04/24 00:09 11/04/24 09:41 Morphine Sulfate 4 Mg/Ml 1 Ml Carp\Vial IV 11/18/24 00:08 4 mg Q4H PRN Administration Pain Oxycodone HCl 5 mg 11/04/24 00:09 11/04/24 09:00 Oxycodone Hcl Ir 5 Mg Tab (Immediate Release) PO 11/18/24 00:08 5 mg Q4H PRN Administration Pain Past Anesthesia History No Hx of Anesthesia Complications and No Family Hx of Anesthesia Complications History of PONV No Hx of PONV and No Hx of Motion Sickness NPO Date Last Intake of Fluids: 11/03/24 Time Last Intake of Fluids: 23:30 Date Last Intake of Solids: 11/03/24 Time Last Intake of Solids: 17:00 HCG & FBG Results 11/03/24 21:30 POC Ur Test NEG Home Medications Home Medications Medication Instructions Recorded Confirmed Last Taken No Known Home Medications 11/03/24 11/03/24 Unknown Active Medications Generic Name Dose Route Start Last Admin Trade Name Hossein PRN Reason Stop Dose Admin Sodium Chloride 1,000 mls @ 100 mls/hr 11/04/24 04:12 11/04/24 06:17 Nss IV 11/04/24 14:11 100 mls/hr .Q10H ONE Administration Morphine Sulfate 4 mg 11/04/24 00:09 11/04/24 09:41 Morphine Sulfate 4 Mg/Ml 1 Ml Carp\Vial IV 11/18/24 00:08 4 mg Q4H PRN Administration Pain Oxycodone HCl 5 mg 11/04/24 00:09 11/04/24 09:00 Oxycodone Hcl Ir 5 Mg Tab (Immediate Release) PO 11/18/24 00:08 5 mg Q4H PRN Administration Pain Exercise / Class Metabolic Activity Metabolic Activity: II 4-5 Yardwork/Stairs/Walk up hill Physical Exam Constitutional: no acute distress Mouth: no dentition abnormality Thyromental Distance: > or= 3.5 Finger Breadths Mallampati Class: II Neck: + visual inspection normal Respiratory: + respiratory effort normal and + clear to auscultation bilaterally; no respiratory distress Cardiovascular: + regular rate and + regular rhythm; no murmur Musculoskeletal: no limited cervical ROM Psychiatric: + alert and + oriented x 3 ASA ASA2 Proposed Anesthesia Proposed Anesthesia: MAC Risk / Benefits Reviewed With: PT / POA / Parent / Guardian, Accepts Plan and Informed Consent Obtained
[2024-11-04] MEDS ORDERED: MIDAZOLAM HCL 1 MG/ML 2ML VIAL ONE (14:15)
[2024-11-04] MEDS ORDERED: DEXAMETHASONE SOD INJ 4 MG/ML VIAL ONE (14:45)
[2024-11-04] MEDS ORDERED: ONDANSETRON INJ 2 MG/ML 2 ML VIAL ONE (14:45)
[2024-11-04] MEDS ORDERED: PROPOFOL IV EMULSION 10 MG/ML 20 ML VIAL IV ONE (14:45)
[2024-11-04] MEDS: DIATRIZOATE MEGLUMINE 30% 100ML VIAL INSTIL ONE (14:52)
--- NOTE | 2024-11-04 15:01 | Operative Report ---
PG Post Operative Report Pre & Post Diagnosis Operation Date: 11/04/24 07:00 Pre-Op Diagnosis: Calculus of left ureter Post-Op Diagnosis: Calculus of left ureter I identified the patient and participated in the time-out.: Yes Procedure Operation Date: 11/04/24 07:00 Actual Procedures p Cystoscopy, left retrograde pyelogram with radiographic interpretation, Left Stent Placement(Left) - Sukhi Bedolla MD Surgeon Sukhi Bedolla MD [employer] [employer] [place] None Estimated Blood Loss 0 Findings See Below Mild left hydro. Stent in appropriate position. Specimens None Drains 6x26 cm left ureteral stent Anesthesia Type MAC Complications none Indications 48-year-old female with a distal left ureteral calculus, intractable pain and concern for UTI. Description of Procedure After informed consent was obtained, the patient was transported operative suite. MAC anesthesia was induced. The patient was placed in dorsal lithotomy position prepped and draped in a sterile fashion. They received preoperative ceftriaxone for antibiotic prophylaxis. An appropriate surgical timeout was performed. A 22 [place] rigid scope was inserted per urethra into the bladder. Archuleta cys toscopy revealed no stones or lesions. I turned my attention the left ureteral orifice and intubated this with a 5 [place] open-ended catheter. A left retrograde pyelogram was shot which showed mild left hydro. A sensor wire was advanced into the kidney and confirmed fluoroscopically. A 6 [place] by 26 cm left ureteral stent was deployed with a good proximal coil in the renal pelvis and a good distal coil noted in the bladder. These were confirmed fluoroscopically and under direct visualization, respectively. The bladder was emptied and the scope was removed. This concluded the end of the case. All counts were correct at the end of the case. I was present, scrubbed, and actively participated for the entirety of the procedure. I attest to the content of the Intraoperative Record and any orders documented therein. Any exceptions are noted below.
--- NOTE | 2024-11-04 15:09 | Fluoroscopy Report ---
INTRAOPERATIVE RADIOGRAPH CLINICAL HISTORY: Left ureteral stent placement. Fluoro time: 9 seconds Ka,r: 1.61 mGy FINDINGS: A single spot fluoroscopic image of the left upper abdomen is correlated with abdominal CT dated 11/03/2024. The image shows the proximal end of a left ureteral stent in appropriate position. IMPRESSION: Intraoperative image from a left ureteral stent placement procedure as above. Electronically signed by: Nestor Tripp M.D. 11/04/2024 3:07 PM
--- NOTE | 2024-11-04 15:30 | Anesthesiology Progress Note ---
Date of Service November 04, 2024 Anesthesia Post Procedure Vital Signs Vital Signs: Temp Pulse Pulse Resp BP BP Pulse Ox 11/04/24 15:15 36.4 C L 68 13 120/73 96 11/04/24 15:05 65 13 110/69 97 11/04/24 14:57 36.9 C 76 14 116/75 97 11/04/24 12:05 37.0 C 69 18 133/76 100 11/04/24 10:39 36.7 C 65 20 147/84 H 100 11/04/24 10:09 36.8 C 72 16 110/69 98 11/04/24 09:54 36.9 C 82 16 132/76 97 11/04/24 09:27 36.6 C 77 16 126/77 99 11/04/24 07:32 36.8 C 73 18 102/64 98 11/04/24 02:33 36.8 C 85 18 133/78 100 11/04/24 01:59 36.8 C 85 18 133/78 85 L 11/04/24 01:30 85 16 128/78 99 11/04/24 00:30 89 123/73 98 11/04/24 00:00 86 130/80 100 11/03/24 23:33 85 123/81 99 11/03/24 21:23 81 18 130/70 99 11/03/24 20:43 37 C 99 H 18 127/79 100 O2 Del Method 11/04/24 15:15 Room Air 11/04/24 15:05 Room Air 11/04/24 14:57 Room Air 11/04/24 12:05 Room Air 11/04/24 10:39 11/04/24 10:09 11/04/24 09:54 11/04/24 09:27 11/04/24 07:32 Room Air 11/04/24 02:33 Room Air 11/04/24 01:59 Room Air 11/04/24 01:30 Room Air 11/04/24 00:30 Room Air 11/04/24 00:00 Room Air 11/03/24 23:33 Room Air 11/03/24 21:23 Room Air 11/03/24 20:43 Room Air Pain Intensity Left Flank: Pain Intensity: 3 Transfer of Care Handoff Completed per policy Notes Mental Status: alert / awake / arousable and participated in evaluation Nausea / Vomiting: adequately controlled Pain: adequately controlled Airway Patency, RR, SpO2: stable & adequate BP & HR: stable & adequate Hydration State: stable & adequate Anesthetic Complications: no major complications apparent and Pt Satisfied with anesthetic care
[2024-11-04] MEDS: cefTRIAXone SODIUM 2,000 MG/50 ML BAG IV SCH (23:08)
[2024-11-05 06:15] VITALS: TEMP 98.1; O2SAT 99
[2024-11-05 07:15] VITALS: BP 118/68; RESP 16
[2024-11-05 07:16] LABS: Hematocrit (blood only) 31.5 % (37.0-47.0); Hemoglobin 8.6 g/dl (12.0-16.0); Mean Corpuscular Hemoglobin 16.8 pg (25.0-34.0); Mean Corpuscular Volume 61.5 fL (80.0-100.0); Platelet Count 394 K/uL (130-400); RDW Standard Deviation 48.7 fL (36.4-46.3); Red Blood Count 5.12 M/uL (4.20-5.40); White Blood Count 11.70 K/ul (4.8-10.8)
--- NOTE | 2024-11-05 07:19 | Urology Progress Note ---
Date of Service November 05, 2024 Assessment & Plan (1) Hydronephrosis: (2) Calculus of left ureter: Plan: POD 1 from left ureteral stent placement. Pain on the left has improved. Has some discomfort on the opposite side Vital signs stable. afebrile hgb 8.6 [id number] Cr pending still Recommend discharge on flomax, and 2 more days of bactrim at home if she is discharged today Plan for stone treatment next week Discussed with Dr Bedolla (3) UTI (urinary tract infection): Admission and Anticipated Discharge Date Admission Date: November 03, 2024 Subjective 48 year old patient POD 1 from left ureteral stent placement. Doing okay today. Her pain on the left is resolved but has some discomfort on the right lower abdominal and flank area. Reports some hematuria and dysuria. Physical Exam Constitutional: well developed and well nourished; no acute distress Respiratory: normal respiratory effort; no respiratory distress and no labored breathing Gastrointestinal (Abdomen): Percussion/Palpation: + abdomen tender and abdomen soft Genitourinary: no CVA tenderness Results & Data Vital Signs (Past 12 Hours) Vital Signs Temp Pulse Resp BP Pulse Ox O2 Del Method 11/05/24 07:14 36.7 C 59 L 16 118/68 99 Room Air 11/05/24 06:09 36.7 C 67 18 120/71 99 Room Air PG Care Time/CCT Total # of Minutes Spent Total Time Spent with Patient: Total time spent is greater than 50% in coordination of care (as documented) at patient's floor/unit and/or counseling patient: Coding Level of Care Code 92331 SUB INP/OBS CARE 05/16MIN Diagnoses Hydronephrosis N13.30 Calculus of left ureter N20.1 UTI (urinary tract infection) N39.0
[2024-11-05] MEDS: LORazepam 0.5 MG TAB PO PRN (07:35)
[2024-11-05 07:38] LABS: Anion Gap 8.0 (3-11); Blood Urea Nitrogen 20.0 mg/dl (6-23); Calcium 8.4 mg/dl (8.6-10.3); Carbon Dioxide 22.0 mmol/L (21-32); Chloride 107.0 mmol/L (98-107); Creatinine Clr Calc Pharmacy 76.1 ml/min; Glucose 125.0 mg/dl (70-99(Fasting)); Magnesium 2.1 mg/dl (1.7-2.4); Potassium 4.0 mmol/L (3.5-5.1); Sodium 137.0 mmol/L (136-145)
--- NOTE | 2024-11-05 09:53 | Discharge Summary ---
Date of Service November 05, 2024 Admission HPI Per Admitting Provider History obtained from patient, family, and records. Medical history significant for chronic anemia (baseline hemoglobin of 8), recent diagnosis of kidney stone. 9 days ago, patient noted left flank pain symptoms going to her belly with nausea/emesis. No gross hematuria. No dysuria. No prior episodes. Patient suspected kidney stone. Patient evaluated at [facility] ER last week. UA showed possible UTI, no imaging done. No medications given on discharge. Patient called PCP's office due to worsening symptoms. Patient directed to urgent care center today. Urgent care center recommended outpatient CT abdomen pelvis imaging. Outpatient CT abdomen pelvis done at [facility] showed left-sided kidney stone measuring 9.5 mm. Patient directed to ER for evaluation. IV ceftriaxone administered at the ER. Medical History as above Surgical History : None Family History : Unknown as patient was adopted Personal/Social history : Non-smoker, no EtOH intake, moy by profession/homemaker Admission Exam Per Admitting Provider GENERAL: Comfortable, pleasant, no respiratory distress SKIN: Pallor, warm HEENT: Bespectacled, pale palpebral conjunctivae, no ptosis, dry buccal mucosa NECK : Supple, no tenderness CHEST : CTA, no tenderness HEART : RRR, no obvious murmurs ABDOMEN: Some distention, left flank tenderness EXTREMITIES : No LE swelling/tenderness, palpable pulses, no other conspicuous deformities noted NEUROLOGIC : Coherent, no facial asymmetry, no other gross focality Principal Diagnosis Obstructive uropathy, calculus of left ureter UTI Discharge Exam GENERAL: WD/WN F in NAD HEENT: Bespectacled, pale palpebral conjunctivae, no ptosis NECK : Supple, no tenderness CHEST : CTA, no tenderness HEART : RRR, no obvious murmurs ABDOMEN: + mid tenderness in lower abd. quadrants EXTREMITIES : No LE swelling, moves extremities NEUROLOGIC : awake, alert, answers appropriately, no facial asymmetry, speech fluent, moves extremities SKIN: warm, dry Discharge Data Allergies Allergy/AdvReac Type Severity Reaction Status Date / Time No Known Allergies Allergy Unverified 11/04/24 12:05 Consultations 11/03/24 22:41 ED Decision to Admit Stat 11/04/24 07:02 Consult Urology Routine Procedures Performed Operation Date: 11/04/24 07:00 Actual Procedures p Cystoscopy, Left Ureteroscopy, Left Stent Placement(Left) - Sukhi Bedolla MD Ordered Studies 11/04/24 FL retrograde includes kub Routine Hospital Course (1) UTI (urinary tract infection): Obstructive uropathy, Calculus of left ureter UTI Secondary to obstructing kidney stone No sepsis Urine CS, ceftriaxone Urology consulted re: obstructing kidney stone, pt s/p Cystoscopy, Left Ureteroscopy, Left Stent Placement, Surgeon: Sukhi Bedolla MD on 11/04/2024 Urine cultx pending Per urology - discharge on Flomax and Bactrim for 2 days (already sent to pharmacy by urology), follow up w/ urology Acute on chronic anemia Patient admits to heavy menses for some time now. microscopic hematuria from kidney stone contributory Anemia workup, transfuse PRBC if hemoglobin less than 7 and or for symptomatic anemia 1 unit of pRBC ordered for Hgb 6.9 yesterday AM, current Hgb 8.6 Outpatient gynecology evaluation for heavy menses PCP follow up - pt wishes to establish care w/ [facility] PCP Total Time Total Time Spent Total Time Spent (In Minutes): 40 Discharge Plan Discharge Items Patient Disposition: Home - Self-Care Reason For Visit: OBS UROPATHY Discharge Diagnosis: Obstructive uropathy, calculus of left ureter UTI Condition on Discharge: Good Activity: Per Instructions section Non-emergency contact: Primary Care Provider and Urologist Call non-emergency contact if: you have any medication questions and your symptoms worsen Follow-up/Referrals: Rojas Hernandez M.D. [Primary Care Provider] - Claus Cornejo M.D. [Outside Practitioners] - (Date & Time 11/09/2024 9:00 AM Provider: Claus Cornejo MD Family [facility] ) Diet: Regular Addtl Attending Provider Instructions: Follow up with primary care physician and urologist. The appointment with your primary care doctor was scheduled for 11/09/2024. Finish antibiotic course as prescribed. Make sure to stay well hydrated. Pending Studies at Discharge: Yes Studies:: final urine cultx results Stand-Alone Forms: My [employer], Smoking Cessation Medications and DC Order Prescriptions: New tamsulosin 0.4 mg capsule 0.4 mg PO DAILY Qty: 14 0RF sulfamethoxazole-trimethoprim [Bactrim DS] 800-160 mg tablet 1 tab PO BID Qty: 4 0RF oxycodone 5 mg Tablet 5 mg PO Q4H PRN (Reason: pain) Qty: 7 0RF Discharge Orders: Discharge Order (Routine); Ordered 11/05/24 Ordered By: Danyel Leigh Admission Data Admit Date/Time: 11/03/24 23:57 Attending Provider: Danyel Leigh Admit Provider: Juan Bender Primary Care Provider: Rojas Hernandez Other Providers: Juan Bender; Topher Ying; Trudy Sanchez; Sumit Sky; Maricel Lima; Chino Dixon; Belle Reaves; Brian Antonio; Albania Kirkland; Chente Schilling; Sukhi Bedolla
[2024-11-05 11:35] VITALS: PULSE 67
--- NOTE | 2024-11-09 10:15 | Coding Query ---
ANEMIA To promote full compliance with coding requirements relating to patient care, physician participation is requested in all cases of structures engineer uncertainty. Please assist us with the question(s) below: Coding Question(s): The record reflects the following clinical findings: There is documentation of Anemia in the record and on the Discharge Summary, of, "Acute on chronic anemia Patient admits to heavy menses for some time now. microscopic hematuria from kidney stone contributory Anemia workup, transfuse PRBC if hemoglobin less than 7 and or for symptomatic anemia 1 unit of pRBC ordered for Hgb 6.9 yesterday AM, current Hgb 8.6 Outpatient gynecology evaluation for heavy menses PCP follow up - pt wishes to establish care w/ [facility] PCP". Regarding the Acute Anemia, please specify the known or suspected type by placing an "X" within the parenthesis (x). If other, please document type. Examples are: ( ) Acute blood loss anemia ( ) Acute Postoperative blood loss anemia ( ) Acute postoperative anemia due to dilutional fluids ( ) Chronic blood loss anemia ( ) Anemia of chronic disease ( ) Aplastic anemia ( ) Anemia due to renal disease ( ) Anemia in neoplastic disease (x ) Iron deficient anemia (x ) Anemia, unspecified or other ( ) Other: (please specify) Thank you Pattie NAVARRETE
== END 2024-11-05 12:37 | disposition home or self-care (01) | DRG 661 ==
LOC: ED 20:41 → 3W 23:57